=== PATIENT | female | born 1980 | race Caucasian/White ===

== ENCOUNTER 2024-01-03 14:25 | Outpatient (RCR) | payer BC, SELFPAY ==
[2024-01-01 14:30] VITALS: BP 119/78
[2024-01-01] MEDS: NSS 250 IV (14:42)
[2024-01-01] MEDS: VENOFER 110 MG IV (14:42)
[2024-01-01 15:43] VITALS: BP 104/66
[2024-01-03] MEDS: NSS 250 IV (14:45)
[2024-01-03] MEDS: VENOFER 110 MG IV (14:46)
[2024-01-03 14:53] VITALS: BP 116/71
[2024-01-03 15:45] VITALS: BP 118/64
== END 2024-01-04 10:38 | disposition home or self-care (01) ==
LOC: OID 14:25
PROVIDERS: ATTENDING PHYSICIAN Student in an Organized Health Care Education/Training Program
DX: D50.9 Iron deficiency anemia, unspecified (principal); D68.00 Von Willebrand disease, unspecified
CPT/HCPCS: 96365; J1756

== ENCOUNTER 2024-01-16 14:31 | Outpatient (RCR) | payer BC, SELFPAY ==
[2024-01-09 14:45] VITALS: BP 133/81
[2024-01-09] MEDS: NSS 250 IV (14:54)
[2024-01-09] MEDS: VENOFER 110 MG IV (14:55)
[2024-01-09 16:00] VITALS: BP 107/67
[2024-01-11 08:45] VITALS: BP 110/74
[2024-01-11] MEDS: NSS 250 IV (08:53)
[2024-01-11] MEDS: VENOFER 110 MG IV (08:54)
[2024-01-11 10:00] VITALS: BP 104/69
[2024-01-16] MEDS: NSS 250 IV (15:11)
[2024-01-16] MEDS: VENOFER 110 MG IV (15:11)
[2024-01-16 15:16] VITALS: BP 123/78
== END 2024-01-17 09:39 | disposition home or self-care (01) ==
LOC: OID 14:31
PROVIDERS: ATTENDING PHYSICIAN Student in an Organized Health Care Education/Training Program
DX: D50.9 Iron deficiency anemia, unspecified (principal); D68.00 Von Willebrand disease, unspecified
CPT/HCPCS: 96361; 96365; J1756

== ENCOUNTER → 2024-04-08 09:01 | Outpatient (REF) | payer BC, SELFPAY | LOC: WDC 09:01 | PROVIDERS: ATTENDING PHYSICIAN Obstetrics & Gynecology; FAMILY PHYSICIAN Student in an Organized Health Care Education/Training Program | DX: Z12.31 Encounter for screening mammogram for malignant neoplasm of breast (principal) | CPT/HCPCS: 77063; 77067 ==

== ENCOUNTER → 2024-04-12 10:42 | Outpatient (REF) | payer BC, SELFPAY | LOC: WDC 10:42 | PROVIDERS: ATTENDING PHYSICIAN Obstetrics & Gynecology; FAMILY PHYSICIAN Student in an Organized Health Care Education/Training Program | DX: R92.8 Other abnormal and inconclusive findings on diagnostic imaging of breast (principal) | CPT/HCPCS: 76642 ==

== ENCOUNTER → 2024-05-22 19:17 | Outpatient (REF) | payer BC, SELFPAY | LOC: MRI 3T 19:17 | PROVIDERS: ATTENDING PHYSICIAN Surgery | DX: R92.2 Inconclusive mammogram (principal); Z80.3 Family history of malignant neoplasm of breast | CPT/HCPCS: 77049; A9585 ==

== ENCOUNTER → 2024-05-30 14:16 | Outpatient (REF) | payer BC, SELFPAY | LOC: WDC 14:16 | PROVIDERS: ATTENDING PHYSICIAN Surgery | DX: R92.8 Other abnormal and inconclusive findings on diagnostic imaging of breast (principal) | CPT/HCPCS: 76642 ==

== ENCOUNTER 2024-10-23 10:36 | Outpatient (RCR) | payer BC, SELFPAY ==
[2024-10-09 10:59] VITALS: BP 119/72
[2024-10-09] MEDS: VENOFER 110 MG IV (11:09)
[2024-10-09 12:10] VITALS: BP 123/67
[2024-10-15] MEDS: VENOFER 110 MG IV (09:39)
[2024-10-15 09:47] VITALS: BP 120/68
[2024-10-15 11:05] VITALS: BP 117/72
[2024-10-17 11:00] VITALS: BP 120/73
[2024-10-17] MEDS: VENOFER 110 MG IV (11:15)
[2024-10-17 12:25] VITALS: BP 126/81
[2024-10-21] MEDS: VENOFER 110 MG IV (11:24)
[2024-10-21 11:32] VITALS: BP 127/81
[2024-10-21 12:28] VITALS: BP 121/75
[2024-10-23 11:00] VITALS: BP 114/71
[2024-10-23] MEDS: VENOFER 110 MG IV (11:15)
[2024-10-23 12:22] VITALS: BP 122/73
== END 2024-10-24 08:38 | disposition home or self-care (01) ==
LOC: OID 10:36
PROVIDERS: ATTENDING PHYSICIAN Internal Medicine
DX: D50.9 Iron deficiency anemia, unspecified (principal)
CPT/HCPCS: 96365; J1756

== ENCOUNTER → 2024-11-11 07:37 | Outpatient (REF) | payer BC, SELFPAY | LOC: MRI 3T 07:37 | PROVIDERS: ATTENDING PHYSICIAN Surgery; FAMILY PHYSICIAN Student in an Organized Health Care Education/Training Program | DX: R92.8 Other abnormal and inconclusive findings on diagnostic imaging of breast (principal) | CPT/HCPCS: 77049; A9585 ==

== ENCOUNTER → 2025-04-09 08:24 | Outpatient (REF) | payer BC, SELFPAY | LOC: WDC 08:24 | PROVIDERS: ATTENDING PHYSICIAN Obstetrics & Gynecology; FAMILY PHYSICIAN Student in an Organized Health Care Education/Training Program | DX: Z12.31 Encounter for screening mammogram for malignant neoplasm of breast (principal) | CPT/HCPCS: 77063; 77067 ==